=== PATIENT | female | born 1970 | race Caucasian/White ===

== ENCOUNTER 2018-02-13 21:58 | Inpatient (IN) | payer OTHER ==
[~2018-02-13] VITALS: Ht 149.9 cm; Wt 60.0 kg
[2018-02-13 23:13] LABS: BASOPHIL % 0.3 % (0-2); PLATELET COUNT 260 x10^3mcL (130-400); RED CELL DISTRIBUTION WIDTH 14.5 % (11.5-14.5)
[2018-02-13 23:22] LABS: ALBUMIN 4.1 g/dL (3.4-5.0); BILIRUBIN TOTAL 0.3 mg/dL (0.20-1.00); CALCIUM 9.6 mg/dL (8.5-10.1); CARBON DIOXIDE 27.6 mmol/L (21-32)
[2018-02-13 23:25] LABS: POTASSIUM SERUM 5.7 mmol/L (3.5-5.1); TOTAL PROTEIN, SERUM 8.7 g/dL (6.4-8.2)
[2018-02-14] VITALS (7 sets, daily range): BP systolic 164–210; BP diastolic 84–107
[2018-02-14 00:47] LABS: MAGNESIUM 2.7 mg/dL (1.8-2.4); PHOSPHOROUS 7.1 mg/dL (2.5-4.9)
[2018-02-14 00:49] LABS: CHOLESTEROL/HDL RATIO 3.8
[2018-02-14 01:00] LABS: FREE T4 0.87 ng/dL (0.76-1.46); FREE THYROXINE INDEX 2.5 ug/dL (1.4-4.5); T4(THYROXINE) 7.9 ug/dL (4.7-13.3)
[2018-02-14 01:45] LABS: T3 TOTAL 1.49 ng/mL
[2018-02-14 02:22] LABS: microscopic required? YES; urine erythrocyte TRACE (NEGATIVE)
[2018-02-14 02:31] LABS: AMPHETAMINE QUAL UR NONE DETECTED (See below)
[2018-02-14 06:11] LABS: CALCIUM 9.6 mg/dL (8.5-10.1); CARBON DIOXIDE 26.2 mmol/L (21-32); POTASSIUM SERUM 5.1 mmol/L (3.5-5.1)
[2018-02-14 06:41] LABS: CREATININE SERUM 9.2 mg/dL (0.6-1.0)
[2018-02-14 07:13] LABS: BASOPHIL % 0.4 % (0-2); PLATELET COUNT 209 x10^3mcL (130-400); RED CELL DISTRIBUTION WIDTH 14.5 % (11.5-14.5)
[2018-02-14 16:11] LABS: CALCIUM 8.8 mg/dL (8.5-10.1); CARBON DIOXIDE 31.3 mmol/L (21-32); POTASSIUM SERUM 3.8 mmol/L (3.5-5.1)
[2018-02-14 16:25] LABS: CREATININE SERUM 5.6 mg/dL (0.6-1.0)
[2018-02-15 05:39] VITALS: BP 155/77
[2018-02-15 09:58] VITALS: BP 165/90
[2018-02-15] MEDS ORDERED: NOR10 PO (10:51)
[2018-02-15 12:57] VITALS: BP 163/87; BP 165/90
[2018-02-15 13:03] VITALS: BP 163/87
== END 2018-02-15 14:08 | disposition home or self-care (01) | DRG 291 ==
LOC: ED 21:58 → DU 23:51
PROVIDERS: Emergency Medicine; Family Medicine
DX: I13.2 Hypertensive heart and chronic kidney disease with heart failure and with stage 5 chronic kidney disease, or end stage renal disease (principal); N17.0 Acute kidney failure with tubular necrosis; N18.6 End stage renal disease; I50.31 Acute diastolic (congestive) heart failure; E87.1 Hypo-osmolality and hyponatremia; E87.5 Hyperkalemia; I16.0 Hypertensive urgency; E11.22 Type 2 diabetes mellitus with diabetic chronic kidney disease; E11.65 Type 2 diabetes mellitus with hyperglycemia; E83.39 Other disorders of phosphorus metabolism; E78.5 Hyperlipidemia, unspecified; Z99.2 Dependence on renal dialysis; Z91.15 Patient's noncompliance with renal dialysis
CPT/HCPCS: 82962; 83880; 84439; J3490; J7030; J7050; J7613; J7620; Q0092; Q0163